=== PATIENT | male | born 1980 | race Two or more races ===

== ENCOUNTER 2017-04-02 10:16 | Day surgery (SDC) | payer OTHER ==
[2017-04-02] MEDS ORDERED: LACTATED RINGERS 1,000 ML IV ONE (10:36)
[2017-04-02] MEDS ORDERED: fentaNYL 100 MCG/2 ML VIAL IVP ONE (10:58)
[2017-04-02] MEDS ORDERED: MIDAZOLAM 2 MG/2 ML VIAL IVP ONE (10:58)
[2017-04-02 12:40] VITALS: BP 111/54
== END 2017-04-02 10:17 | disposition home or self-care (01) ==
LOC: SDS 10:16
PROVIDERS: ATTEND Surgery
PROC: 0DJD8ZZ Inspection of Lower Intestinal Tract, Via Natural or Artificial Opening Endoscopic (ICD-10-PCS; 2017-04-02)
PROC: 06LY4CC Occlusion of Hemorrhoidal Plexus with Extraluminal Device, Percutaneous Endoscopic Approach (ICD-10-PCS; principal; 2017-04-02 10:45)
DX: K62.5 Hemorrhage of anus and rectum (principal); K64.8 Other hemorrhoids; I10 Essential (primary) hypertension; E78.5 Hyperlipidemia, unspecified; Z87.891 Personal history of nicotine dependence; G47.33 Obstructive sleep apnea (adult) (pediatric); Z84.89 Family history of other specified conditions
CPT/HCPCS: 45378; 46221; J7120

== ENCOUNTER 2018-01-03 08:13 | Outpatient (CLI) | payer OTHER ==
--- NOTE | 2018-01-03 14:28 | MRI Report ---
EXAM: RIGHT ANKLE/HINDFOOT MRI WITHOUT CONTRAST EXAM DATE: 01/03/2018 09:50 AM. CLINICAL HISTORY: Acquired flatfoot. Chronic pain in the inferior aspect of the right heel. Prior khari ateral plantar fascial release. COMPARISON: None. TECHNIQUE: Multiplanar, multisequence T1-weighted and fluid-sensitive sequences of the ankle/hindfoot without contrast. Other: None. FINDINGS: Bones: There is an os trigonum with mild edema in the adjacent ends of the ossification center and th e posterior talus. Articular Cartilage: Unremarkable. Ligaments: The anterior and posterior tibiofibular, anterior and posterior talofibular, and calcaneof ibular ligaments are intact. The deep and superficial deltoid and spring ligaments are intact. Anterior Tendons: The tibialis anterior, extensor hallucis longus, and extensor digitorum longus tend ons are unremarkable. Medial Tendons: The tibialis posterior, flexor digitorum longus, and flexor hallucis longus tendons a re unremarkable. Lateral Tendons: The peroneus brevis and longus are unremarkable. Achilles Tendon: The Achilles tendon is unremarkable. Musculature: No edema or fatty atrophy. Other: No effusions. The contents of the sinus tarsi and tarsal tunnel are unremarkable. There is thi ckening of the medial aspect of the plantar fascia consistent with a history of prior surgery and evan ntar fasciitis. There is no edema. The subcutaneous tissues are unremarkable. IMPRESSION: 1. Findings consistent with prior plantar fasciitis and postoperative scarring. 2. Possible pseudoarticulation between the os trigonum and the adjacent talus. [facility]CULOSKE[facility] SECTION Referring Provider Line: [phone] SITE ID: [id number]
== END 2018-01-03 08:14 | disposition home or self-care (01) ==
LOC: DI 08:13
PROVIDERS: ATTEND Podiatrist Foot & Ankle Surgery
DX: M79.671 Pain in right foot (principal)

== ENCOUNTER 2019-09-10 08:06 | Outpatient (CLI) | payer OTHER ==
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
--- NOTE | 2019-09-10 14:12 | MRI Report ---
Reason: PATELLAR TENDINITIS Procedure Date: 09/10/2019 Accession Number: [id number] / [id number] Procedure: MRI - Knee LT W/O CPT Code: Final Report FULL RESULT: EXAM: LEFT KNEE MRI WITHOUT CONTRAST EXAM DATE: 09/10/2019 09:53 AM. CLINICAL HISTORY: Patellar tendinitis. COMPARISON: None. TECHNIQUE: Multiplanar, multisequence T1-weighted and fluid-sensitive sequences of the knee without contrast. Other: None. FINDINGS: Bones: High position of the patella. Articular Cartilage: Chondromalacia inferior aspect lateral patellar facet. Medial Meniscus: Horizontal degenerative tear posterior horn medial meniscus with extension to the inferior to articular surface. Lateral Meniscus: The lateral meniscus is intact. Cruciate Ligaments: The anterior and posterior cruciate ligaments are intact. Collateral Ligaments: The medial collateral and lateral collateral ligamentous structures are intact. Tendons: The quadriceps, patellar, semimembranosus, and popliteus tendons are unremarkable. Trace linear fluid signal superior lateral aspect infrapatellar fat pad. Musculature: No edema or fatty atrophy. Other: No effusion. No popliteal cyst. No loose bodies. The medial and lateral retinacula are intact. The subcutaneous tissues and fat pads are unremarkable. IMPRESSION: 1. Horizontal degenerative tear posterior horn medial meniscus with extension to the inferior articular surface. 2. High position of the patella and focal chondromalacia inferior aspect lateral patellar facet. Possible patella maltracking. [facility]
== END 2019-09-10 08:07 | disposition home or self-care (01) ==
LOC: DI 08:06
PROVIDERS: ATTEND Student in an Organized Health Care Education/Training Program
DX: S67.191A Crushing injury of left index finger, initial encounter (principal); S83.242A Other tear of medial meniscus, current injury, left knee, initial encounter; M22.42 Chondromalacia patellae, left knee

== ENCOUNTER 2019-10-15 12:08 | Outpatient (CLI) | payer OTHER | END 2019-10-15 12:09 | disposition home or self-care (01) | LOC: DI 12:08 | PROVIDERS: ATTEND Student in an Organized Health Care Education/Training Program | DX: Z53.9 Procedure and treatment not carried out, unspecified reason (principal) ==

== ENCOUNTER 2020-07-04 16:25 | Outpatient (CLI) | payer OTHER | END 2020-07-04 16:26 | disposition home or self-care (01) | LOC: COV 16:25 | PROVIDERS: ATTEND Family Medicine | DX: Z20.828 Contact with and (suspected) exposure to other viral communicable diseases (principal) ==